=== PATIENT | female | born 1965 | race Caucasian/White ===

== ENCOUNTER 2016-12-02 16:32 | Observation (INO) | payer OTHER ==
[~2016-12-02] VITALS: Ht 154.9 cm; Wt 68.5 kg
[2016-12-02 18:57] LABS: HEMOGLOBIN 13.3 gm/dl (12.3-15.3); RED BLOOD COUNT 4.71 M/UL (4.00-5.10); WHITE BLOOD COUNT 4.4 K/UL (4.5-11.0)
[2016-12-03] MEDS ORDERED: PRILOSEC OTC20 MG PO (04:28)
[2016-12-03] MEDS ORDERED: LANTUS100 UNIT/1 SQ (04:29)
[2016-12-03] MEDS ORDERED: NOVOLOG 10100 UNITS/ SQ (04:29)
[2016-12-03] MEDS ORDERED: LISINOPRIL10 MG PO (04:30)
[2016-12-03] MEDS ORDERED: ELIQUIS2.5 MG PO (04:30)
[2016-12-03 07:19] LABS: BUN/CREATININE RATIO 21 (0-10)
[2016-12-03] MEDS ORDERED: ELIQUIS5 MG PO (16:00)
== END 2016-12-03 16:30 | disposition home or self-care (01) ==
LOC: ER1 16:32 → M/S 12-03 01:43 → ZEROF 12-03 01:43 → M/S 12-03 01:43
PROVIDERS: Radiology Radiation Oncology; ADMIT Internal Medicine
DX: R07.9 Chest pain, unspecified (principal); E11.65 Type 2 diabetes mellitus with hyperglycemia; E11.22 Type 2 diabetes mellitus with diabetic chronic kidney disease; I12.9 Hypertensive chronic kidney disease with stage 1 through stage 4 chronic kidney disease, or unspecified chronic kidney disease; N18.1 Chronic kidney disease, stage 1; N17.9 Acute kidney failure, unspecified; E87.1 Hypo-osmolality and hyponatremia; E86.0 Dehydration; I73.9 Peripheral vascular disease, unspecified; K21.9 Gastro-esophageal reflux disease without esophagitis; F17.210 Nicotine dependence, cigarettes, uncomplicated; Z82.49 Family history of ischemic heart disease and other diseases of the circulatory system; Z88.5 Allergy status to narcotic agent; Z88.8 Allergy status to other drugs, medicaments and biological substances; Z79.01 Long term (current) use of anticoagulants; Z79.899 Other long term (current) drug therapy; Z90.49 Acquired absence of other specified parts of digestive tract; Z98.51 Tubal ligation status; Z98.890 Other specified postprocedural states
CPT/HCPCS: ECHO; 36415; 36600; 71010; 78452; 80048; 80053; 80061; 82550; 82553; 82803; 82962; 83036; 83874; 84484; 85025; 85379; 93005; 93017; 93306; 96372; 96374; 96375; 99285; A9502; G0378; J1650; J1815; J2270; J2785; J7030

== ENCOUNTER 2016-12-22 08:15 | Emergency (ER) | payer OTHER ==
[~2016-12-22 08:15] MED LIST: ELIQUIS2.5 MG PO; ELIQUIS5 MG PO; LANTUS100 UNIT/1 SQ; LISINOPRIL10 MG PO; NOVOLOG 10100 UNITS/ SQ; PRILOSEC OTC20 MG PO
[2016-12-22 09:16] LABS: RED BLOOD COUNT 4.22 M/UL (4.00-5.10); WHITE BLOOD COUNT 7.9 K/UL (4.5-11.0)
[2016-12-22 09:25] LABS: BUN/CREATININE RATIO 16 (0-10)
== END 2016-12-22 14:12 | disposition home or self-care (01) ==
LOC: ER1 08:15
PROVIDERS: Physician Assistant
DX: S09.90XA Unspecified injury of head, initial encounter (principal); S16.1XXA Strain of muscle, fascia and tendon at neck level, initial encounter; T14.8 Other injury of unspecified body region; E10.65 Type 1 diabetes mellitus with hyperglycemia; I10 Essential (primary) hypertension; F17.210 Nicotine dependence, cigarettes, uncomplicated; Z88.5 Allergy status to narcotic agent; Z90.49 Acquired absence of other specified parts of digestive tract; W19.XXXA Unspecified fall, initial encounter
CPT/HCPCS: 36415; 70450; 71010; 72125; 73130; 80053; 80307; 81001; 82009; 82550; 82553; 82803; 82962; 83605; 83874; 84484; 85025; 87040; 93005; 96361; 96374; 99285; J1815